=== PATIENT | female | born 1960 | race Caucasian/White ===

== ENCOUNTER → 2019-01-31 | Outpatient (REF) ==
--- NOTE | 2019-01-31 12:42 | REP ---
Left elbow series: Four views. History: Degenerative disease. Findings: Four views of the left hip demonstrate medial epicondylar spurring. There is mild coronoid process spurring as well. The lateral view is less than optimally positioned with lack of 90 degrees flexion. No erosive changes seen. Impression: Medial epicondylar and coronoid process spurring. No acute bony abnormality. Electronically Signed by Sandeep Denney MD 01/31/2019 12:33 P
--- NOTE | 2019-01-31 12:50 | REP ---
LEFT HUMERUS: Two views. HISTORY: Degenerative disease. FINDINGS: AP and lateral views of the left humerus demonstrate mild hypertrophy of the distal clavicle at the AC joint consistent with mild osteoarthritis. Glenohumeral articulation is normally aligned. There are two or three tiny subcortical cysts visible in the superolateral humeral head. This is a finding which has been correlated with impingement. There is mild diffuse osteopenia. No other abnormality. IMPRESSION: Mild diffuse osteopenia. Mild osteoarthritic hypertrophy of the distal clavicle at the AC joint. Subcortical cyst formation in the humeral head. Electronically Signed by Sandeep Denney MD 01/31/2019 01:07 P
--- NOTE | 2019-01-31 13:34 | REP ---
CERVICAL SPINE SERIES: Three views. HISTORY: Degenerative disc disease. No comparison imaging. FINDINGS: There is a peripherally calcified thyroid cyst or nodule 2.0 cm in diameter to the left of the trachea just above the thoracic inlet. Prevertebral soft tissues are otherwise unremarkable. There is degenerative disc disease in the cervical spine at C4-5, C5-6 and C6-7 with disc space narrowing and osteophyte formation anteriorly at each of these levels. C7-T1 spurring is noted as well. No malalignment is seen. No fracture is noted. AP view shows mild osteoarthritic facet hypertrophy in the mid cervical spine. Open-mouth odontoid view is unremarkable. IMPRESSION: Degenerative disc and osteoarthritic facet changes. No acute bony abnormality. Calcified left thyroid nodule noted incidentally. Electronically Signed by Sandeep Denney MD 01/31/2019 04:56 P
== END ==
LOC: M SMT 11:24
PROVIDERS: ATTEND Internal Medicine
DX: M50.320 Other cervical disc degeneration, mid-cervical region, unspecified level (principal); M25.78 Osteophyte, vertebrae; M25.722 Osteophyte, left elbow

== ENCOUNTER → 2022-04-01 | Outpatient (REF) | payer MEDICARE | LOC: M SFHCDERM 12:58 | PROVIDERS: ATTEND Nurse Practitioner Family | DX: L82.1 Other seborrheic keratosis (principal) ==